=== PATIENT | female | born 1985 | race Caucasian/White ===

== ENCOUNTER 2020-08-28 12:50 | Emergency (ER) | payer OTHER, SELFPAY ==
[2020-08-28 13:13] VITALS: O2SAT 98
[2020-08-28] MEDS ORDERED: MOTRIN 600 MG PO ONE (13:16)
[2020-08-28] MEDS ORDERED: MOTRIN 600 MG ONE (13:38)
--- NOTE | 2020-08-28 13:49 | XRAY ---
Indication: Pain 6-8 months. No known injury. Comparison: None 3 view left shoulder demonstrates normal bones, articulation, and soft tissues.
[2020-08-28 14:09] VITALS: BP 136/80; PULSE 80
--- NOTE | 2020-08-28 14:11 | ERPHSYRPT ---
- History of Present Illness Time Seen by Provider: 08/28/20 13:00 Source: patient Exam Limitations: no limitations Patient Subjective Stated Complaint: "My shoulder has been hurting for the past two weeks." Triage Nursing Assessment: Patient reported left shoulder pain. Onset two weeks ago. Located on the top of the shoulder. Intermittent in duration with past injury roughly two years ago. Characterized as throbbing. Denied alleviating factors. Aggravated with movments. Has taken tylenol on occassion at home without relief. 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 Peripheral pulses +2 bilateral. Slight decrease in ROM with increased pain. Tenderness noted over the AC joint. No noted ecchymosis or deformities. Physician History: Patient is a 34-year-old female presents to our ED for evaluation of left shoulder pain. Patient has been experiencing this left shoulder pain for 2 years. Pain has been intermittent. However pain has been significantly worse and constant over the past 2 weeks. No trauma. Pain described as an ache that is primarily deep to the shoulder on the superior aspect. There is some mild pain with palpation. Pain worse with movement. Patient states that pain is significantly worse when she carries her baby carrier. No falls. Symptoms are now constant. Symptoms are mild in intensity. Patient has not had any pain medication at this time. No upper extremity numbness tingling or weakness. No neck pain. No headache. Patient voices no other complaints or concerns at this time. Occurred: other (Pain has been intermittent for 2 years but constant over the past 2 weeks.) Method of Injury: unknown Quality: constant Extremities Pain Location: shoulder: left Modifying Factors: Improves With: movement Associated Symptoms: none Allergies/Adverse Reactions: fentanyl Allergy (Mild, Verified 08/28/20 12:58) Penicillins Adverse Reaction (Verified 08/28/20 12:58) Home Medications: Levothyroxine Sodium [Euthyrox] 1 tab PO DAILY 08/28/20 [History] Hx Tetanus, Diphtheria Vaccination/Date Given: Yes (08/31/15) Hx Influenza Vaccination/Date Given: No Hx Pneumococcal Vaccination/Date Given: No Travel Risk - International Travel Have you traveled outside of the country in past 3 weeks: No - Coronavirus Screening Are you exhibiting any of the following symptoms?: No Close contact with a COVID-19 positive Pt in past 14-21 Days: No - Review of Systems Constitutional: No Symptoms, No Fever, No Chills Eyes: No Symptoms Ears, Nose, & Throat: No Symptoms Respiratory: No Symptoms, No Cough, No Dyspnea Cardiac: No Symptoms, No Chest Pain, No Edema, No Syncope Abdominal/Gastrointestinal: No Symptoms, No Abdominal Pain, No Nausea, No Vomiting, No Diarrhea Genitourinary Symptoms: No Symptoms, No Dysuria Musculoskeletal: No Symptoms, No Back Pain, No Neck Pain Skin: No Symptoms, No Rash Neurological: No Symptoms, No Dizziness, No Focal Weakness, No Sensory Changes Psychological: No Symptoms Endocrine: No Symptoms Hematologic/Lymphatic: No Symptoms Immunological/Allergic: No Symptoms All Other Systems: Reviewed and Negative - Past Medical History Pertinent Past Medical History: Yes Neurological History: No Pertinent History ENT History: No Pertinent History Cardiac History: No Pertinent History Endocrine Medical History: Thyroid Cancer Musculoskeletal History: No Pertinent History GI Medical History: No Pertinent History History: No Pertinent History Psycho-Social History: No Pertinent History Female Reproductive Disorders: No Pertinent History Other Medical History: THYROID CANCER - Past Surgical History Past Surgical History: Yes Neuro Surgical History: No Pertinent History Cardiac: No Pertinent History Respiratory: No Pertinent History Gastrointestinal: No Pertinent History Genitourinary: No Pertinent History Musculoskeletal: No Pertinent History Female Surgical History: No Pertinent History Other Surgical History: THYROIDECTOMY, LYMPH NODE - Social History Smoking Status: Never smoker Exposure to second hand smoke: No Alcohol Use: Socially Drug Use: none Patient Lives Alone: No Significant Family History: no pertinent family hx - Female History Hx Last Menstrual Period: 08/18/20 Hx Now: No - Nursing Vital Signs Nursing Vital Signs: Initial Vital Signs Pulse Rate 87 08/28/20 12:50 Respiratory Rate 14 08/28/20 12:50 Blood Pressure 138/86 08/28/20 12:50 O2 Sat by Pulse Oximetry 98 08/28/20 12:50 Pain Scale Pain Intensity 4 - Physical Exam General Appearance: no apparent distress, alert Eyes, Ears, Nose, Throat Exam: moist mucous membranes Neck Exam: non-tender, supple Cardiovascular/Respiratory Exam: chest non-tender, normal breath sounds, regular rate/rhythm, no respiratory distress Abdominal Exam: non-tender, No guarding Back Exam: normal inspection, No vertebral tenderness Shoulder Exam: normal inspection, no evidence of injury (Patient has pain with active movement. There is no bony tenderness. Overlying soft tissue intact. Extremity is neurovascularly intact distally. Cap refill less than 2 seconds. Compartments are soft.), limited ROM, pain, No normal ROM, No bone tenderness, No swelling Elbow/Forearm Exam: normal inspection, non-tender Wrist Exam: normal inspection Hand Exam: normal inspection Neuro/Tendon Exam: normal sensation, normal motor functions Mental Status Exam: alert, oriented x 3, cooperative Skin Exam: normal color, warm, dry SpO2 Interpretation: normal SpO2: 98 O2 Delivery: Room Air - Course Nursing assessment & vital signs reviewed: Yes - Radiology Exams Shoulder X-ray Interpretation: Teleradiologist Report (3 view left shoulder demonstrates normal bones articulation and soft tissue) Ordered Tests: Active Orders 24 hr Category Date Time Status SHOULDER Stat Exams 08/28/20 13:42 Completed Medication Summary Discontinued Medications Generic Name Dose Route Start Last Admin Trade Name Freq PRN Reason Stop Dose Admin Ibuprofen 600 mg 08/28/20 13:16 08/28/20 13:39 Motrin 600 Mg PO 08/28/20 13:17 600 mg STAT ONE Administration Ibuprofen Confirm 08/28/20 13:38 Motrin 600 Mg Administered 08/28/20 13:39 Dose 600 mg .ROUTE .STK-MED ONE - Progress Progress: improved Progress Note: Patient reassessed. Pain improved. X-ray negative for acute pathology. Patient's pain appears to be stemming from soft tissue injury possible rotator cuff. Patient referred to orthopedic surgery for further evaluation and treatment. Left shoulder sling applied. Work note provided. Patient will follow up with orthopedic surgery tomorrow. She voices no other complaints or concerns at this time. [id number] analgesics as needed as directed. Will discharge at this time. 08/28/20 14:27 Counseled pt/family regarding: diagnosis, need for follow-up, rad results - Departure Departure Disposition: Home Clinical Impression: Shoulder pain, Rotator cuff disorder Condition: Stable Critical Care Time: No Referrals: DOCTOR,NO FAMILY [Primary Care Provider] - Additional Instructions: Discharge/Care Plan FIDE BASS was seen on 08/28/20 in the Emergency Room. The patient was counseled regarding Diagnosis,Lab results, Imaging studies, need for follow up and when to return to the Emergency Room. Prescriptions given: Discharge Note I have spoken with the patient and/or caregivers. I have explained the patient's condition, diagnosis and treatment plan based on the information available to me at this time. I have answered the patient's and/or caregiver's questions and addressed any concerns. The patient and/or caregivers have as good understanding of the patient's diagnosis, condition and treatment plan as can be expected at this point. The vital signs have been stable. The patient's condition is stable and appropriate for discharge from the emergency department. The patient will pursue further outpatient evaluation with the primary care physician or other designated or consulting physician as outlined in the discharge instructions. The patient and/or caregivers are agreeable to this plan of care and follow-up instructions have been explained in detail. The patient and/or caregivers have received these instruction. The patient/and or caregivers are aware that any significant change in condition or worsening of symptoms should prompt an immediate return to this or the closest emergency department or call 911. Outpatient Orders: Ortho Referral Time Frame: 1 Day, Facility: [facility]. Hosp, Location: [facility]
== END 2020-08-28 14:28 | disposition home or self-care (01) ==
LOC: ED 12:50
DX: M25.512 Pain in left shoulder (principal); S43.422S Sprain of left rotator cuff capsule, sequela
CPT/HCPCS: 73030; 99283; A9270-GY

== ENCOUNTER 2021-04-30 13:13 | Emergency (ER) | payer OTHER ==
[2021-04-30] MEDS ORDERED: Sodium Chloride 0.9% 1000 ML 1,000 ML IV STA (13:33)
[2021-04-30] MEDS ORDERED: TORAdol 30 mg Injection IV ONE (13:33)
--- NOTE | 2021-04-30 13:33 | ERPHSYRPT ---
- History of Present Illness Time Seen by Provider: 04/30/21 13:30 Historian: patient Exam Limitations: no limitations Physician History: Patient is a 35-year-old female presents to our ED with complaints of right lower quadrant pain for the day. Patient states she is currently on Nexplanon control which was implanted in her right arm. This is due to be removed in September. Patient has been experiencing some intermittent vaginal bleeding. Patient concerned that her pain is related to this implant. No trauma. No fever. No nausea or vomiting. No diarrhea. No rash. Symptoms are mild to moderate in intensity. No specific worsening improving factors. Patient voices no other complaints or concerns at this time. Timing/Duration: yesterday Activities at Onset: none Quality: aching Abdominal Pain Onset Location: RLQ Pain Radiation: no radiation Severity of Pain-Max: moderate Severity of Pain-Current: mild Associated Symptoms: denies symptoms Previous symptoms: no prior history Allergies/Adverse Reactions: fentanyl Allergy (Mild, Verified 04/30/21 13:34) Penicillins Adverse Reaction (Verified 04/30/21 13:34) Home Medications: Levothyroxine Sodium [Euthyrox] 150 tab PO DAILY 08/28/20 [History] Hx Tetanus, Diphtheria Vaccination/Date Given: Yes (08/31/15) Hx Influenza Vaccination/Date Given: No Hx Pneumococcal Vaccination/Date Given: No - Review of Systems Constitutional: No Symptoms, No Fever, No Chills Eyes: No Symptoms Ears, Nose, & Throat: No Symptoms Respiratory: No Symptoms, No Cough, No Dyspnea Cardiac: No Symptoms, No Chest Pain, No Edema, No Syncope Abdominal/Gastrointestinal: No Symptoms, No Abdominal Pain, No Nausea, No Vomiting, No Diarrhea Genitourinary Symptoms: No Symptoms, No Dysuria Musculoskeletal: No Symptoms, No Back Pain, No Neck Pain Skin: No Symptoms, No Rash Neurological: No Symptoms, No Dizziness, No Focal Weakness, No Sensory Changes Psychological: No Symptoms Endocrine: No Symptoms Hematologic/Lymphatic: No Symptoms Immunological/Allergic: No Symptoms All Other Systems: Reviewed and Negative - Past Medical History Pertinent Past Medical History: Yes Neurological History: No Pertinent History ENT History: No Pertinent History Cardiac History: No Pertinent History Respiratory History: No Pertinent History Endocrine Medical History: Thyroid Cancer, Other Musculoskeletal History: No Pertinent History GI Medical History: No Pertinent History History: No Pertinent History Psycho-Social History: No Pertinent History Female Reproductive Disorders: No Pertinent History Other Medical History: Thyroid CA in 2012, - Past Surgical History Past Surgical History: Yes Neuro Surgical History: No Pertinent History Cardiac: No Pertinent History Respiratory: No Pertinent History Gastrointestinal: No Pertinent History Genitourinary: No Pertinent History Musculoskeletal: No Pertinent History Female Surgical History: No Pertinent History Other Surgical History: THYROIDECTOMY, LYMPH NODE - Social History Smoking Status: Never smoker Exposure to second hand smoke: No Alcohol Use: Socially Drug Use: none Patient Lives Alone: No Significant Family History: no pertinent family hx - Nursing Vital Signs Nursing Vital Signs: Initial Vital Signs Temperature 97.9 F 04/30/21 13:23 Pulse Rate 85 04/30/21 13:23 Respiratory Rate 16 04/30/21 13:23 Blood Pressure 132/82 04/30/21 13:23 O2 Sat by Pulse Oximetry 99 04/30/21 13:23 Pain Scale Pain Intensity 5 - Physical Exam General Appearance: no apparent distress, alert Eye Exam: PERRL/EOMI, eyes nml inspection Ears, Nose, Throat Exam: normal ENT inspection, pharynx normal, moist mucous membranes Neck Exam: normal inspection, non-tender, supple, full range of motion Respiratory Exam: normal breath sounds, lungs clear, airway intact, No respiratory distress Cardiovascular Exam: regular rate/rhythm, normal heart sounds Gastrointestinal/Abdomen Exam: soft, other (Tenderness palpation right lower quadrant.), No tenderness, No mass Back Exam: normal inspection, normal range of motion, No CVA tenderness, No vertebral tenderness Extremity Exam: normal inspection, normal range of motion, pelvis stable Neurologic Exam: alert, oriented x 3, cooperative, normal mood/affect, sensation nml, No motor deficits Skin Exam: normal color, warm, dry SpO2 Interpretation: normal SpO2: 99 O2 Delivery: Room Air - Course Nursing assessment & vital signs reviewed: Yes Ordered Tests: Active Orders 24 hr Category Date Time Status IV Insertion STAT Care 04/30/21 13:33 Active ABDOMEN AND PELVIS W CONTRAST [CT] Stat Exams 04/30/21 13:33 Completed CBC W DIFF Stat Lab 04/30/21 13:40 Completed CMP Stat Lab 04/30/21 13:40 Completed HCG,QUALITATIVE URINE Stat Lab 04/30/21 13:35 Completed UA W/RFX UR CULTURE Stat Lab 04/30/21 13:35 Completed Medication Summary Discontinued Medications Generic Name Dose Route Start Last Admin Trade Name Mdaeline PRN Reason Stop Dose Admin Sodium Chloride 1,000 mls @ 999 mls/hr 04/30/21 13:33 04/30/21 15:19 Sodium Chloride 0.9% 1000 Ml IV 04/30/21 14:33 Infused .Q1H1M STA Infusion Sodium Chloride Confirm 04/30/21 14:10 Sodium Chloride 0.9% 1000 Ml Administered 04/30/21 14:11 Dose 1,000 mls @ ud .ROUTE .STK-MED ONE Ketorolac Tromethamine 30 mg 04/30/21 13:33 04/30/21 14:13 Ketorolac Tromethamine 30 Mg/Ml Inj IV 04/30/21 13:34 30 mg STAT ONE Administration Ketorolac Tromethamine Confirm 04/30/21 14:10 Ketorolac Tromethamine 30 Mg/Ml Inj Administered 04/30/21 14:11 Dose 30 mg .ROUTE .STK-MED ONE Lab/Rad Data: Laboratory Result Diagrams 04/30/21 13:40 04/30/21 13:40 Laboratory Results 04/30/21 04/30/21 04/30/21 Range/Units 13:40 13:40 13:35 WBC 7.1 (4.0-10.5) K/mm3 RBC 4.67 (4.1-5.4) M/mm3 Hgb 14.3 (12.0-16.0) gm/dl Hct 41.7 (35-47) % MCV 89.3 (78-100) fl MCH 30.6 (26-32) pg MCHC 34.3 (32-36) g/dl RDW 12.4 (11.5-14.0) % Plt Count 232 (150-450) K/mm3 MPV 8.9 (7.5-11.0) fl Gran % 59.1 (36.0-66.0) % Eos # (Auto) 0.10 (0-0.5) Absolute Lymphs (auto) 2.36 (1.0-4.6) Absolute Monos (auto) 0.42 (0.0-1.3) Lymphocytes % 33.3 (24.0-44.0) % Monocytes % 5.9 (0.0-12.0) % Eosinophils % 1.4 (0.00-5.0) % Basophils % 0.3 (0.0-0.4) % Absolute Granulocytes 4.19 (1.4-6.9) Basophils # 0.02 (0-0.4) Sodium 141 (137-145) mmol/L Potassium 3.7 (3.5-5.1) mmol/L Chloride 104 (98-107) mmol/L Carbon Dioxide 28 (22-30) mmol/L Anion Gap 12.9 (5-15) MEQ/L BUN 12 (7-17) mg/dL Creatinine 0.74 (0.52-1.04) mg/dL Estimated GFR > 60.0 ML/MIN Glucose 120 H (74-106) mg/dL Calcium 9.2 (8.4-10.2) mg/dL Total Bilirubin 0.50 (0.2-1.3) mg/dL AST 21 (14-36) U/L ALT 24 (0-35) U/L Alkaline Phosphatase 51 (38-126) U/L Serum Total Protein 7.5 (6.3-8.2) g/dL Albumin 4.4 (3.5-5.0) g/dL Urine Color (YELLOW) Urine Appearance (CLEAR) Urine pH (5-6) Ur Specific [place] (1.005-1.025) Urine Protein (Negative) Urine Ketones (NEGATIVE) Urine Blood (0-5) Lee/ul Urine Nitrite (NEGATIVE) Urine Bilirubin (NEGATIVE) Urine Urobilinogen (0-1) mg/dL Ur Leukocyte Esterase (NEGATIVE) Urine WBC (Auto) (0-5) /HPF Urine RBC (Auto) (0-2) /HPF U Epithel Cells (Auto) (FEW) /HPF Urine Bacteria (Auto) (NEGATIVE) /HPF Urine Culture Reflexed (NO) Urine Glucose (NEGATIVE) mg/dL Urine HCG, Qual NEGATIVE (Negative) 04/30/21 Range/Units 13:35 WBC (4.0-10.5) K/mm3 RBC (4.1-5.4) M/mm3 Hgb (12.0-16.0) gm/dl Hct (35-47) % MCV (78-100) fl MCH (26-32) pg MCHC (32-36) g/dl RDW (11.5-14.0) % Plt Count (150-450) K/mm3 MPV (7.5-11.0) fl Gran % (36.0-66.0) % Eos # (Auto) (0-0.5) Absolute Lymphs (auto) (1.0-4.6) Absolute Monos (auto) (0.0-1.3) Lymphocytes % (24.0-44.0) % Monocytes % (0.0-12.0) % Eosinophils % (0.00-5.0) % Basophils % (0.0-0.4) % Absolute Granulocytes (1.4-6.9) Basophils # (0-0.4) Sodium (137-145) mmol/L Potassium (3.5-5.1) mmol/L Chloride (98-107) mmol/L Carbon Dioxide (22-30) mmol/L Anion Gap (5-15) MEQ/L BUN (7-17) mg/dL Creatinine (0.52-1.04) mg/dL Estimated GFR ML/MIN Glucose (74-106) mg/dL Calcium (8.4-10.2) mg/dL Total Bilirubin (0.2-1.3) mg/dL AST (14-36) U/L ALT (0-35) U/L Alkaline Phosphatase (38-126) U/L Serum Total Protein (6.3-8.2) g/dL Albumin (3.5-5.0) g/dL Urine Color YELLOW (YELLOW) Urine Appearance SLIGHTLY CLOUDY (CLEAR) Urine pH 7.0 (5-6) Ur Specific [place] 1.010 (1.005-1.025) Urine Protein NEGATIVE (Negative) Urine Ketones NEGATIVE (NEGATIVE) Urine Blood MODERATE (0-5) Lee/ul Urine Nitrite NEGATIVE (NEGATIVE) Urine Bilirubin NEGATIVE (NEGATIVE) Urine Urobilinogen NEGATIVE (0-1) mg/dL Ur Leukocyte Esterase NEGATIVE (NEGATIVE) Urine WBC (Auto) 0-2 (0-5) /HPF Urine RBC (Auto) 0-2 (0-2) /HPF U Epithel Cells (Auto) RARE (FEW) /HPF Urine Bacteria (Auto) NONE (NEGATIVE) /HPF Urine Culture Reflexed NO (NO) Urine Glucose NEGATIVE (NEGATIVE) mg/dL Urine HCG, Qual (Negative) - Progress Progress: improved Progress Note: Patient reassessed. She feels well. Patient has no pain. Work-up essentially nonremarkable. Laboratory work-up nonremarkable. There is some hematuria observed in the urinalysis. The CT abdomen pelvis had contrast therefore it was somewhat difficult to observe a stone. No stone observed. It is possible there is a small stone somewhere in the system causing the hematuria however this has not been confirmed at this time. Patient will take [id number] pain medication as needed. She will drink plenty of water. Patient may follow- up with her primary care doctor within 48 hours for reevaluation. Portions of this note were created with voice recognition technology. There may be grammatical, spelling, punctuation or sound alike errors 04/30/21 15:32 Counseled pt/family regarding: lab results, diagnosis, need for follow-up, rad results - Departure Departure Disposition: Home Clinical Impression: Hematuria, Gallstones, Diverticulosis Condition: Stable Critical Care Time: No Referrals: DOCTOR,NO FAMILY [Primary Care Provider] - THOMAS WASHINGTON DO [ACTIVE STAFF] - Additional Instructions: Discharge/Care Plan SHELIAFIDE IRVIN was seen on 04/30/21 in the Emergency Room. The patient was counseled regarding Diagnosis,Lab results, Imaging studies, need for follow up and when to return to the Emergency Room. Prescriptions given: Discharge Note I have spoken with the patient and/or caregivers. I have explained the patient's condition, diagnosis and treatment plan based on the information available to me at this time. I have answered the patient's and/or caregiver's questions and addressed any concerns. The patient and/or caregivers have as good understanding of the patient's diagnosis, condition and treatment plan as can be expected at this point. The vital signs have been stable. The patient's condition is stable and appropriate for discharge from the emergency department. The patient will pursue further outpatient evaluation with the primary care physician or other designated or consulting physician as outlined in the discha rge instructions. The patient and/or caregivers are agreeable to this plan of care and follow-up instructions have been explained in detail. The patient and/or caregivers have received these instruction. The patient/and or caregivers are aware that any significant change in condition or worsening of symptoms should prompt an immediate return to this or the closest emergency department or call 911.
[2021-04-30 13:46] LABS: Absolute Neutrophil Ct (ANC) 4.19 (1.4-6.9); BASOPHIL % 0.3 % (0.0-0.4); Basophil (Absolute #) 0.02 (0-0.4); Eosinophil % 1.4 % (0.00-5.0); Hematocrit 41.7 % (35-47); Hemoglobin 14.3 gm/dl (12.0-16.0); Lymphocyte (Absolute #) 2.36 (1.0-4.6); Lymphocytes % 33.3 % (24.0-44.0); Mean Cell Volume 89.3 fl (78-100); Mean Corpuscular Hemoglobin 30.6 pg (26-32); Mean Corpuscular Hgb Concent. 34.3 g/dl (32-36); Mean Platelet Volume 8.9 fl (7.5-11.0); Monocyte (Absolute #) 0.42 (0.0-1.3); Monocytes % 5.9 % (0.0-12.0); Neutrophil % 59.1 % (36.0-66.0); Platelet Count 232 K/mm3 (150-450); Red Blood Count 4.67 M/mm3 (4.1-5.4); Red Cell Distribution Width 12.4 % (11.5-14.0); White Blood Count 7.1 K/mm3 (4.0-10.5)
[2021-04-30 13:53] LABS: Appearance SLIGHTLY CLOUDY (CLEAR); Bilirubin NEGATIVE (NEGATIVE); Blood MODERATE Ery/ul (0-5); Epithelial Cells RARE /HPF (FEW); Glucose NEGATIVE (NEGATIVE); Ketones NEGATIVE (NEGATIVE); Leukocyte Esterase NEGATIVE (NEGATIVE); Nitrite NEGATIVE (NEGATIVE); Protein,Urine Dip NEGATIVE (Negative); RBC 0-2 /HPF (0-2); Urobilinogen NEGATIVE mg/dL (0-1); WBC 0-2 /HPF (0-5)
[2021-04-30 14:00] LABS: ALBUMIN 4.4 g/dL (3.5-5.0); ALKALINE PHOSPHATASE 51 U/L (38-126); ANION GAP 12.9 MEQ/L (5-15); BLOOD UREA NITROGEN 12 mg/dL (7-17); CHLORIDE 104 mmol/L (98-107); Calcium 9.2 mg/dL (8.4-10.2); Carbon Dioxide 28 mmol/L (22-30); Creatinine 1 0.74 mg/dL (0.52-1.04); EST GLOMERULAR FILTRATION RATE > 60.0 ML/MIN; Glucose 120 mg/dL (74-106); Potassium 3.7 mmol/L (3.5-5.1); SGOT/AST 21 U/L (14-36); SGPT/ALT 24 U/L (0-35); SODIUM 141 mmol/L (137-145); Total Protein 7.5 g/dL (6.3-8.2)
[2021-04-30] MEDS ORDERED: TORAdol 30 mg Injection ONE (14:10)
[2021-04-30] MEDS ORDERED: Sodium Chloride 0.9% 1000 ML 1,000 ML ONE (14:10)
--- NOTE | 2021-04-30 14:57 | XRAY ---
Indication: Right lower quadrant pain. Urolithiasis. Multiple contiguous axial images obtained through the abdomen and pelvis using 80 cc Isovue 370 contrast. Comparison: None Lung bases demonstrates minimal dependent atelectasis. No infiltrate or effusion. Heart not enlarged. Stomach is distended with food/fluid. Noncontrasted stomach and bowel loops appear nonobstructed. Normal appendix. Mild fecal debris predominantly in the ascending and transverse colon. Scattered descending and sigmoid diverticulosis without diverticulitis. Both kidneys enhance and excrete limiting evaluation for calculus. Tiny punctate gallstones in the dependent portion. Remaining liver, gallbladder, pancreas, spleen, adrenal glands, kidneys, ureters, bladder, uterus, and aorta are unremarkable. No pathologic retroperitoneal lymphadenopathy. Osseous structures intact. Impression: 1. IV contrast limits evaluation for calculus. 2. Tiny gallstones, mild right hemicolon fecal stasis, and scattered colonic diverticulosis. 3. Remaining CT abdomen/pelvis with contrast exam is negative.
[2021-04-30 15:14] VITALS: BP 116/76
[2021-04-30 15:55] VITALS: PULSE 90; O2SAT 97
== END 2021-04-30 15:54 | disposition home or self-care (01) ==
LOC: ED 13:13
DX: R31.9 Hematuria, unspecified (principal); K80.80 Other cholelithiasis without obstruction; K57.90 Diverticulosis of intestine, part unspecified, without perforation or abscess without bleeding
CPT/HCPCS: 36000; 36415; 74177; 80053; 81001; 84703; 85025; 96360; 96374; 99284; J1885

== ENCOUNTER 2021-06-15 09:22 | Day surgery (SDC) | payer OTHER ==
[~2021-06-15 09:22] MED LIST: Lactated Ringers 1,000 ML IV ONE; Sensorcaine 0.25% 10 ML ONE
[2021-06-15] MEDS ORDERED: CLINDAMYCIN-D5W 900 MG/50 ML*** 900 MG/50 ML BAG IV ONE (10:32)
[2021-06-15] MEDS ORDERED: Levofloxacin 500MG/100ML D5W 500 MG/100 ML BAG IV ONE (10:32)
[2021-06-15] MEDS ORDERED: Lactated Ringers 1,000 ML IV ONE (10:32)
[2021-06-15] MEDS ORDERED: Levofloxacin 500MG/100ML D5W 500 MG/100 ML BAG IV SCH (10:45)
[2021-06-15] MEDS ORDERED: CLINDAMYCIN-D5W 900 MG/50 ML*** 900 MG/50 ML BAG IV SCH (11:00)
[2021-06-15] MEDS ORDERED: Lactated Ringers 1,000 ML IV SCH (11:00)
[2021-06-15] MEDS ORDERED: SUBLIMAZE 250 MCG/5 ML ONE (11:33)
[2021-06-15] MEDS ORDERED: DIPRIVAN 200 MG/20 ML IV ONE (11:33)
[2021-06-15] MEDS ORDERED: Zemuron 100 MG/10 ML ONE (11:33)
[2021-06-15] MEDS ORDERED: Versed 2 MG/2 ML Injection ONE (11:33)
[2021-06-15] MEDS ORDERED: Ephedrine Sulfate 50 MG/ML ONE (12:19)
[2021-06-15] MEDS ORDERED: BRIDION 200MG/2ML IV ONE (12:38)
[2021-06-15] MEDS ORDERED: TORAdol 30 mg Injection ONE (13:00)
--- NOTE | 2021-06-15 13:01 | HP ---
DATE OF SURGERY: 06/15/2021 HISTORY OF PRESENT ILLNESS: The patient is a 35-year-old with right abdominal pain associated with bloating, some gas, aches and pains. CT scan showed gallstone. Denied any prior abdominal surgeries. PAST MEDICAL HISTORY: Hypothyroidism. PAST SURGICAL HISTORY: Thyroid removed in the past. Lymph node removed in the past. MEDICATIONS: Levothyroxine. ALLERGIES: PENICILLIN. FAMILY HISTORY: Negative in regards to this problem. SOCIAL HISTORY: No alcohol abuse. REVIEW OF SYSTEMS: Fourteen systems reviewed. No chest pain or palpitations. Other systems negative or noncontributory as above and per preadmission questionnaire. PHYSICAL EXAMINATION: GENERAL: No acute distress. HEENT: Sclerae nonicteric. NECK: No JVD. CHEST: Clear to auscultation. CVS: Regular rate and rhythm. ABDOMEN: Soft, some mild tenderness right abdomen. No peritoneal signs. EXTREMITIES: No significant edema. NEURO: Alert, oriented, moving extremities symmetrically. PSYCH: Appropriate mood and affect. IMPRESSION: Acute abdominal pain, acute exacerbation of chronic cholecystitis. I feel the patient will benefit from cholecystectomy. Risks and benefits explained in detail including but not limited to bleeding or infection, risk of trocar injury or hernia, risk of bowel, bladder or blood vessel injury, risk of bile leak, bile duct injury, retained stone or sludge possibly requiring further procedure either open or ERCP, general risk of anesthesia, deep venous thrombosis, pulmonary embolism, pneumonia, perioperative risk of aches, pains, bloating, constipation and/or loose stools possibly even chronic in nature. She understands and agrees to the planned procedure, will proceed with laparoscopic cholecystectomy with possible open when OR time available.
[2021-06-15] MEDS ORDERED: Hydromorphone 1 mg/ml Injection ONE (13:08)
[2021-06-15] MEDS ORDERED: Zofran 4 MG/2 ML VIAL ONE (13:13)
--- NOTE | 2021-06-15 14:49 | OP ---
SURGERY DATE/TIME: 06/15/2021 1159 PREOPERATIVE DIAGNOSIS: Acute exacerbation of chronic cholecystitis, symptomatic cholelithiasis. POSTOPERATIVE DIAGNOSIS: Acute exacerbation of chronic cholecystitis, symptomatic cholelithiasis. PROCEDURE: Laparoscopic cholecystectomy. SURGEON: Dr. Markell Espinal. ANESTHESIA: General. ESTIMATED BLOOD LOSS: Minimal. INDICATIONS: As noted above. Risks and benefits explained in detail but not limited to and consent obtained. DESCRIPTION OF PROCEDURE AND FINDINGS: The patient was taken to the operating room. General anesthesia induced. Abdomen prepped and draped in the usual sterile fashion. After official time out and no disagreement with planned procedure, a transverse incision made at supraumbilical area. Fascia grasped and pulled up. Veress needle inserted and tested with saline. Pneumoperitoneum accomplished opening pressure of 0-15. An 11 mm bladeless port and camera inserted without difficulty followed by two - 5 mm right upper quadrant ports and 5 mm epigastric port. The gallbladder grasped retracted over the edge of the liver. There are omental adhesions and chronic inflammation dissection posterior, lateral to anterior fashion. Cystic duct and infundibular area slowly and carefully well skeletonized until the critical view obtained both anteriorly and posteriorly. Cystic duct and cystic artery clipped x3 and divided in usual fashion. Dissecting staying directly on the gallbladder wall, clipped the main cystic artery branch as well as some oozing side branches that were clipped directly on the gallbladder wall as necessary. Just prior to releasing from final attachments to the anterior edge of the liver, there is an oozing vein towards the anterior edge of the liver this is clipped. Just prior to releasing the final attachments to the anterior edge of the liver. Clips were noted in place cystic duct and cystic artery stumps. No signs of any active bleeding or bile leakage. It was felt there is no benefit in drain placement. A small amount of bile seeped from the gallbladder body itself. A thin retractor grasped the area. No gross stone spillage was noted. The gallbladder is released from final attachments, placed in the provided bag, pulled free up and out the 10/11 supraumbilical port site and passed off. This area is closed with puncture closure device with #1 Vicryl. The port replaced prior to securing the suture. Copious amount of irrigation accomplished lateral to the liver and subhepatic space irrigating until clear. Liver bed re-inspected. Clips noted to be in place cystic duct and cystic artery stump. No signs of any active bleeding or bile leakage. It was felt there is no benefit from drain placement. Pneumoperitoneum decompressed. The wound irrigated out. Skin incision closed with 4-0 Vicryl. Steri-Strips and sterile dressing applied. 0.25% Marcaine local had been injected along the skin incision fascial defect at the beginning of the procedure. There were no immediate complications. There was no family available to discuss the findings with. If they should return and have questions later I can be paged otherwise will see her back in the office next week.
[2021-06-15 15:20] VITALS: O2SAT 96
[2021-06-15 15:30] VITALS: BP 129/74; PULSE 80
== END 2021-06-15 15:10 | disposition home or self-care (01) ==
LOC: SDC 09:22
PROVIDERS: ATTEND Surgery
DX: K80.00 Calculus of gallbladder with acute cholecystitis without obstruction (principal)
CPT/HCPCS: 84703; 88304; J1170; J1885; J1956; J2250; J2405; J2704; J3010

== ENCOUNTER 2022-11-26 19:56 | Emergency (ER) | payer OTHER ==
[2022-11-26] MEDS ORDERED: Ativan 2 MG/1 ML VIAL IM ONE (20:21)
[2022-11-26] MEDS ORDERED: Ativan 2 MG/1 ML VIAL ONE (20:23)
--- NOTE | 2022-11-26 20:26 | ERPHSYRPT ---
- History of Present Illness Time Seen by Provider: 11/26/22 20:21 Source: patient Exam Limitations: no limitations Patient Subjective Stated Complaint: Pt took a [place] 10 and then about 45 min to an hour she took a Celebrex for the first time and then she started feeling "high" and she took her blood pressure and it was 180/? and then it was ?/45, pt thought she was having a reaction to her medicine, pt had been outside all day and had only drank 2 mountain dews and a partial water Triage Nursing Assessment: Pt was brought to the ER by her boyfriend, vitals are wnl, denies pain at this time, pt is taking medication due to a surgery she had, no difficulties breathing, no rash, no itching, pt only feels high and is shaky Physician History: Pt took a [place] 10 and then about 45 min to an hour she took a Celebrex for the first time and then she started feeling "high" and she took her blood pressure and it was 180/? and then it was ?/45, pt thought she was having a reaction to her medicine, pt had been outside all day and had only drank 2 mountain dews and a partial water Timing/Duration: today Severity: moderate Associated Symptoms: denies symptoms Allergies/Adverse Reactions: fentanyl Allergy (Mild, Verified 06/15/21 10:29) Pt unsure of reaction celecoxib [From Celebrex] Adverse Reaction (Verified 11/26/22 20:21) Penicillins Adverse Reaction (Verified 06/15/21 10:29) Rash Rash Home Medications: Levothyroxine Sodium [Euthyrox] 150 tab PO DAILY 08/28/20 [History] Omeprazole 20 mg PO DAILY 06/10/21 [History] Hx Tetanus, Diphtheria Vaccination/Date Given: Yes (08/31/15) Hx Influenza Vaccination/Date Given: No Hx Pneumococcal Vaccination/Date Given: No Travel Risk - International Travel Have you traveled outside of the country in past 3 weeks: No - Coronavirus Screening Are you exhibiting any of the following symptoms?: No - Vaccine Status Have you recieved a Covid-19 vaccination: Yes 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 - Vaccination Dates Date of 2cond Vaccination (if applicable): 2020 - Review of Systems Constitutional: No Symptoms Eyes: No Symptoms Ears, Nose, & Throat: No Symptoms Respiratory: No Symptoms Cardiac: No Symptoms Abdominal/Gastrointestinal: No Symptoms Genitourinary Symptoms: No Symptoms Musculoskeletal: No Symptoms Skin: No Symptoms Neurological: No Symptoms Psychological: Anxiety Endocrine: No Symptoms Hematologic/Lymphatic: No Symptoms - Past Medical History Pertinent Past Medical History: Yes Neurological History: No Pertinent History, Alzheimer's Disease ENT History: No Pertinent History Cardiac History: No Pertinent History Respiratory History: No Pertinent History Endocrine Medical History: Thyroid Cancer Musculoskeletal History: No Pertinent History GI Medical History: GERD, Gallbladder Disease History: No Pertinent History Psycho-Social History: No Pertinent History Female Reproductive Disorders: No Pertinent History Other Medical History: THYROID REMOVED IN 2011 WITH ORAL RADIATION, HX OF BROKEN TOE - Past Surgical History Past Surgical History: Yes Neuro Surgical History: No Pertinent History Cardiac: No Pertinent History Respiratory: No Pertinent History Gastrointestinal: No Pertinent History Genitourinary: No Pertinent History Musculoskeletal: No Pertinent History Female Surgical History: No Pertinent History Other Surgical History: THYROIDECTOMY, LYMPH NODE - Social History Smoking Status: Never smoker Exposure to second hand smoke: No Alcohol Use: Socially Drug Use: none Patient Lives Alone: No Significant Family History: no pertinent family hx - Female History Hx Last Menstrual Period: 11/24/2022 Hx Now: No - Nursing Vital Signs Nursing Vital Signs: Initial Vital Signs Temperature 97.8 F 11/26/22 20:06 Pulse Rate 86 11/26/22 20:06 Blood Pressure 109/73 11/26/22 20:06 O2 Sat by Pulse Oximetry 98 11/26/22 20:06 Pain Scale Pain Intensity 0 - Physical Exam General Appearance: mild distress Eye Exam: PERRL/EOMI Ears, Nose, Throat Exam: normal ENT inspection Neck Exam: normal inspection Respiratory Exam: normal breath sounds Cardiovascular Exam: regular rate/rhythm Gastrointestinal/Abdomen Exam: soft Back Exam: normal inspection Neurologic Exam: alert, oriented x 3, cooperative, 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 Skin Exam: normal color SpO2 Interpretation: normal SpO2: 98 O2 Delivery: Room Air - Course Nursing assessment & vital signs reviewed: Yes Ordered Tests: Active Orders 24 hr Category Date Time Status POCT Glucose Check STAT Care 11/26/22 20:06 Active POCT GLUCOSE Stat Lab 11/26/22 20:08 Completed Medication Summary Generic Name Dose Route Start Last Admin Trade Name Freq PRN Reason Stop Dose Admin Lorazepam 2 mg 11/26/22 20:21 Lorazepam 2 Mg/1 Ml 2 Mg Vial IM 11/26/22 20:22 STAT ONE Lab/Rad Data: Laboratory Results 11/26/22 Range/Units 20:08 POC Glucometer 132 H (74 to 106) mg/dL - Progress Progress: improved Counseled pt/family regarding: diagnosis, need for follow-up - Departure Departure Disposition: Home Clinical Impression: Adverse reaction to drug in therapeutic use Condition: Stable Critical Care Time: No Referrals: TRENA GREEN NP [Primary Care Provider] - Follow up/PCP as directed Instructions: Adverse Drug Reactions, Adult (DC), Adverse Drug Reactions, Adult ED Additional Instructions: You have a probably adverse reaction with Celebrex which she took today in combination with hydrocodone. You should avoid Celebrex for now and take Tylenol 500 mg with 400 mg of ibuprofen every 8 hours for next 2 to 3 days for pain. Also try to avoid hydrocodone for couple days. Discharge/Care Plan FIDE BASS was seen on 11/26/22 in the Emergency Room. The patient was counseled regarding Diagnosis,Lab results, Imaging studies, need for follow up and when to return to the Emergency Room. Prescriptions given: Discharge Note I have spoken with the patient and/or caregivers. I have explained the patient's condition, diagnosis and treatment plan based on the information available to me at this time. I have answered the patient's and/or caregiver's questions and addressed any concerns. The patient and/or caregivers have as good understanding of the patient's diagnosis, condition and treatment plan as can be expected at this point. The vital signs have been stable. The patient's condition is stable and appropriate for discharge from the emergency department. The patient will pursue further outpatient evaluation with the primary care physician or other designated or consulting physician as outlined in the discharge instructions. The patient and/or caregivers are agreeable to this plan of care and follow-up instructions have been explained in detail. The patient and/or caregivers have received these instruction. The patient/and or caregivers are aware that any significant change in condition or worsening of symptoms should prompt an immediate return to this or the closest emergency department or call 911. FIDE BASS was seen on 11/26/22 n the Emergency Room. At that time you were treated for an emergent condition, during your visit Laboratory, Radiology and/or other procedures may have been ordered. It is very important that you follow-up with your Primary Care Physician TRENA GREEN within the next 24-48 hours to review your Emergency Room visit and the final results of testing that was ordered. Some test results such as Urine Cultures, Blood Cultures, and other cultures if ordered will not be finalized for 24-48 hours. If you do not have a Primary Care Provider please call the medical records department at [phone] to obtain a copy of your results or you may sign into our patient portal to obtain these results by visiting us @ [email or web address] and completing the following steps: 1. Click on the Patient Portal link 2. Click the Patient Self Enrollment Link to complete the enrollment form and entering your 3. Once the enrollment form is completed you will receive an email with a temporary ID and password at the email address you provided. 4. Next choose a user name and password. Your user name must be at least 4 characters long and your password must be at least 4 characters long. 5. Choose a security question from the list and provide your answer to the question. If you already have signed into the Health Portal you may access your Health Care Information 07/02 by the following steps: 1. Login to our website @ [email or web address] 2. Enter your original user name and password. FAQS The [facility] Health Portal is an online tool that contains your Lab Results, Radiology Reports, Visit History, Discharge Instructions and Health Summary Lab and Radiology Results will not be available for 72 hours on the portal. The Portal is a secure site, passwords are encryted and URLs are re-written so they cannot be copied and pasted. You and authorized family members are the only ones who can access your Portal. Also there is a timeout feature that protects your information if you leave the Portal page open. If you have technical difficulty please use the Contact Us link on the page this will allow you to submit any questions you have regarding the Portal or you may contact the Medical Record Department at [phone] ext [phone].
[2022-11-26 20:35] VITALS: BP 111/81; PULSE 72; O2SAT 97
== END 2022-11-26 20:40 | disposition home or self-care (01) ==
LOC: ED 19:56
DX: T40.2X5A Adverse effect of other opioids, initial encounter (principal); T39.395A Adverse effect of other nonsteroidal anti-inflammatory drugs [NSAID], initial encounter; Z85.850 Personal history of malignant neoplasm of thyroid; Z20.828 Contact with and (suspected) exposure to other viral communicable diseases; Z79.899 Other long term (current) drug therapy
CPT/HCPCS: 82947; 96372; 99283; J2060

== ENCOUNTER 2022-12-01 12:30 | Emergency (ER) | payer OTHER ==
[2022-12-01 12:57] VITALS: BP 137/78; PULSE 72; O2SAT 100
[2022-12-01] MEDS ORDERED: TORAdol 30 mg Injection IM ONE (13:03)
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
[2022-12-01] MEDS ORDERED: TORAdol 30 mg Injection ONE (13:20)
[2022-12-01] MEDS ORDERED: Ativan 0.5 MG PO ONE (13:52)
[2022-12-01] MEDS ORDERED: Ativan 1 MG ONE (14:02)
[2022-12-01] MEDS ORDERED: Ativan 1 MG PO ONE (14:07)
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
== END 2022-12-01 15:15 | disposition home or self-care (01) ==
LOC: ED 12:30
DX: S09.90XA Unspecified injury of head, initial encounter (principal); S16.1XXA Strain of muscle, fascia and tendon at neck level, initial encounter; S40.011A Contusion of right shoulder, initial encounter; V59.59XA Passenger in pick-up truck or van injured in collision with other motor vehicles in traffic accident, initial encounter; Z79.899 Other long term (current) drug therapy
CPT/HCPCS: 70450; 72125; 73030; 96372; 99285; J1885; A9270-GY

== ENCOUNTER 2025-02-13 14:21 | Emergency (ER) | payer MEDICAID ==
[2025-02-13 14:48] VITALS: O2SAT 99
[2025-02-13] MEDS ORDERED: TYLENOL EXTRA STRENGTH 500 MG ONE (14:57)
[2025-02-13] MEDS: TYLENOL EXTRA STRENGTH 500 MG PO STA (14:58)
--- NOTE | 2025-02-13 15:01 | ERPHSYRPT ---
- History of Present Illness Time Seen by Provider: 02/13/25 14:36 Source: patient Exam Limitations: no limitations Patient Subjective Stated Complaint: patient stated that she woke up yesterday with sore throat and cold chills Triage Nursing Assessment: patient presents to ed with complaints of sore throat and cold chills, patient's temp 102.7 orally, all other vitals wnl, no sob/trouble breathing noted, patient's skin n/w/d, patient unable to stick tongue out for this nurse to visualize throat Physician History: 39-year-old female presented in the ER with complaints of 2 days history of sore throat with fever and chills. No difficulty breathing. Pain with swallowing. No cough or congestion reported. No known sick contacts. Timing/Duration: abrupt onset, days (2) Severity: moderate Allergies/Adverse Reactions: fentanyl Allergy (Mild, Verified 02/13/25 14:48) Pt unsure of reaction celecoxib [From Celebrex] Adverse Reaction (Verified 02/13/25 14:48) Penicillins Adverse Reaction (Verified 02/13/25 14:48) Rash Rash Home Medications: Levothyroxine Sodium [Euthyrox] 150 tab PO DAILY 08/28/20 [History] Omeprazole 20 mg PO DAILY 06/10/21 [History] Hx Tetanus, Diphtheria Vaccination/Date Given: Yes Hx Influenza Vaccination/Date Given: Yes Hx Pneumococcal Vaccination/Date Given: No Travel Risk - International Travel Have you traveled outside of the country in past 3 weeks: No - Emerging Infectious Disease Are you exhibiting symptoms associated with any current EIDs: Yes Symptoms: Fever, Headaches/Body Aches/ - Review of Systems Constitutional: No Symptoms Ears, Nose, & Throat: Throat Pain, Throat Swelling Respiratory: No Symptoms Cardiac: No Symptoms Abdominal/Gastrointestinal: No Symptoms Musculoskeletal: No Symptoms Skin: No Symptoms Neurological: No Symptoms Endocrine: No Symptoms Hematologic/Lymphatic: No Symptoms - Past Medical History Pertinent Past Medical History: Yes Other Medical History: thyroid cancer- throidectomy - Past Surgical History Past Surgical History: Yes Other Surgical History: thyroidectomy Significant Family History: no pertinent family hx - Female History Hx Last Menstrual Period: 02/08/25 Hx Now: No - Social History Smoking Status: Never smoker Exposure to second hand smoke: No Drug Use: none - Social Determinants of Health Will the patient participate in the screening: Yes Do you worry about a steady place to live?: No Do you have any problems with any of the following?: No known problems In the past 12 months,have you had to go without utilities?: No Transportation Issues: No Has anyone in your support network made you feel unsafe?: No Have you or anyone in your house had to go w/o enough food: No - Nursing Vital Signs Nursing Vital Signs: Initial Vital Signs Temperature 102.7 F 02/13/25 14:22 Pulse Rate 112 H 02/13/25 14:22 Respiratory Rate 16 02/13/25 14:22 Blood Pressure 104/72 02/13/25 14:22 O2 Sat by Pulse Oximetry 99 02/13/25 14:22 Pain Scale Pain Intensity 8 - Physical Exam General Appearance: no apparent distress Eye Exam: bilateral eye: normal inspection, PERRL, EOMI Ear Exam: bilateral ear: auricle normal, canal normal, TM normal Nasal Exam: normal inspection Throat Exam: pharynx swelling, pharynx tenderness, tonsillar exudate Neck Exam: normal inspection, non-tender, supple, full range of motion Cardiovascular/Respiratory Exam: normal breath sounds, tachycardia Neurologic Exam: alert, oriented x 3, cooperative, capacity analyst II-XII nml as tested Skin Exam: normal color SpO2 Interpretation: normal SpO2: 99 O2 Delivery: Room Air Ordered Tests: Medication Summary Discontinued Medications Generic Name Dose Route Start Last Admin Trade Name Madeline PRN Reason Stop Dose Admin Acetaminophen 1,000 mg 02/13/25 14:55 02/13/25 14:58 Acetaminophen 500 Mg Tablet PO 02/13/25 14:56 1,000 mg STAT STA Administration Acetaminophen Confirm 02/13/25 14:57 Acetaminophen 500 Mg Tablet Administered 02/13/25 14:58 Dose 1,000 mg .ROUTE .[employer] ONE Lab/Rad Data: Laboratory Results 02/13/25 Range/Units 15:05 Group A Strep Antibody DETECTED A (NEGATIVE) - Progress Progress: improved, pain not gone completely Progress Note: 02/13/25 15:38 Differential diagnosis: Acute strep pharyngitis, viral pharyngitis, tonsillitis, peritonsillar abscess 39-year-old is evaluated in the ER with 2 days history of sore throat with fever chills. She is given Tylenol for symptomatic relief. She has a positive strep, will start her on azithromycin as patient is allergic to penicillin. Recommended taking Tylenol ibuprofen as needed and outpatient follow-up. Discussed signs symptoms of worsening needing return to ER which she seems understanding. Stable for discharge Complexity of problems addressed: Moderate acute Complexity of data reviewed/analyzed: Minimal Risk of complication: Low Counseled pt/family regarding: lab results, diagnosis, need for follow-up Medical Desision Making - Diagnostic Testing Diagnostic test were ordered, analyzed, and reviewed by me: Yes - Risk of complications The pt has a mod risk of morbidity or mortality based on: Need for prescription drug management - Departure Departure Disposition: Home Clinical Impression: Acute streptococcal pharyngitis Condition: Stable Critical Care Time: No Referrals: TRENA GREEN NP [Primary Care Provider, [facility]] - Follow up with PCP 1 day Instructions: Strep Throat (DC) Additional Instructions: Take Tylenol/ibuprofen as needed. Follow-up with primary care for reevaluation. Return to ER for worsening soreness in the throat, difficulty breathing/swallowing, persistent high-grade fever chills etc. Prescriptions: Azithromycin 250 mg [Zithromax 250 MG TABLET] 250 mg PO ZPACK #6 tablet
[2025-02-13 15:58] VITALS: BP 118/75; PULSE 94; RESP 16; TEMP 99.5
== END 2025-02-13 15:58 | disposition home or self-care (01) ==
LOC: ED 14:21
DX: J02.0 Streptococcal pharyngitis (principal); R50.9 Fever, unspecified; Z79.899 Other long term (current) drug therapy